=== PATIENT | female | born 1995 | race African-American/Black ===

== ENCOUNTER 2018-07-22 21:29 | Emergency (ER) | payer OTHER ==
[~2018-07-22] VITALS: Ht 157.5 cm; Wt 65.9 kg
[2018-07-22 23:30] VITALS: BP 118/73
[2018-07-23] MEDS ORDERED: ACETAMINOPHEN 325 MG TABLET PO ONE
== END 2018-07-23 01:28 | disposition home or self-care (01) ==
LOC: EMS 21:31
DX: S06.0X9A Concussion with loss of consciousness of unspecified duration, initial encounter (principal); S00.81XA Abrasion of other part of head, initial encounter; F12.90 Cannabis use, unspecified, uncomplicated; Z88.0 Allergy status to penicillin; W05.1XXA Fall from non-moving nonmotorized scooter, initial encounter; Y93.89 Activity, other specified; Y92.89 Other specified places as the place of occurrence of the external cause; Y99.8 Other external cause status
CPT/HCPCS: 70450; 99284